=== PATIENT | female | born 1960 | race Caucasian/White ===

== ENCOUNTER → 2019-01-18 08:20 | Outpatient (CLI) | payer OTHER, SELFPAY ==
--- NOTE | 2019-01-18 08:23 | DI.RAD.S_ITS ---
PROCEDURE: XR FOOT LT MIN 3V INDICATIONS: Left foot pain TECHNIQUE: 3 views of the foot were acquired. COMPARISON: None. FINDINGS: Bones: No fractures or dislocations. No suspicious bony lesions. Soft tissues: No tibiotalar joint effusion. Achilles tendon appears normal. IMPRESSION: 3 views of the left foot show a small plantar fascial insertion spur at the posterior calcaneus, and no evidence of trauma or significant degenerative change. Dictated by: Donovan New M.D. on 01/18/2019 at 9:32 Approved by: Donovan New M.D. on 01/18/2019 at 9:33
[2019-01-18 09:14] LABS: Hematocrit 37.8 % (36-46); Hemoglobin 12.7 g/dL (12.0-16.0); Mean Corpuscular HGB Conc 33.5 % (30-36); Mean Corpuscular Hemoglobin 28.7 PG (26-34); Mean Corpuscular Volume 85.8 fL (80-100); Platelet Count 275 X10^3/uL (150-400); Red Blood Cell Count 4.41 X10^6/uL (4.0-5.2); Red Cell Distribution Width 14.2 % (11.6-14.8); White Blood Cell Count 5.1 X10^3/uL (4.5-11.0)
[2019-01-18 09:36] LABS: Alanine Aminotransferase 27 IU/L (9-52); Albumin 4.1 g/dL (3.5-5.0); Albumin Globulin Ratio 1.3 (1.0-2.8); Alkaline Phosphatase 121 U/L (38-126); Aspartate Aminotransferase 30 IU/L (14-36); BUN Creatinine Ratio 21.7 (6-22); Bilirubin Total 0.6 mg/dL (0.2-1.3); Blood Urea Nitrogen 13 mg/dL (7-17); Calcium 9.4 mg/dL (8.4-10.2); Carbon Dioxide 29 mmol/L (22-32); Chloride 105 mmol/L (98-107); Cholesterol 213 mg/dL (140-199); Estimated Glomerular Filt Rate > 60.0 mL/min (>60); Globulin 3.1 g/dL (1.7-4.1); Glucose 114 mg/dL (70-100); HDL Cholesterol 69 mg/dL (40-60); HEMOLYSIS < 15 (0-50); LDL Cholesterol Calculated 131 mg/dL (<100); Potassium 4.4 mmol/L (3.4-5.1); Sodium 139 mmol/L (137-145); Total Protein 7.2 g/dL (6.3-8.2); Triglycerides 63 mg/dL (35-150)
[2019-01-18 10:04] LABS: Thyroid Stimulating Hormone 3.45 uIU/mL (0.47-4.68)
[2019-01-18 11:03] LABS: Neutrophils Absolute Manual 3468 /uL (3000-5900); Total Cells Counted 100
[2019-01-18 11:04] LABS: Anisocytosis 1+
[2019-01-18 11:38] LABS: Appearance Urine UA CLEAR; Bilirubin Urine UA NEGATIVE (NEGATIVE); Color Urine UA YELLOW; Glucose Urine UA NEGATIVE (Negative); Ketones Urine UA NEGATIVE (NEGATIVE); Leukocyte Esterase Urine UA TRACE (NEGATIVE); Nitrite Urine UA NEGATIVE (Negative); Occult Blood Urine UA NEGATIVE (Negative); Protein Urine UA NEGATIVE (Negative); Specific Gravity Urine UA 1.025 (1.000-1.035); Urobilinogen Urine UA 0.2 E.U./dL (0.2)
[2019-01-18 11:42] LABS: RBC Urine None Seen (0-5/HPF)
[2019-01-18 12:30] LABS: Calcium Oxalate Crystals Urine Few; Squamous Epithelial Cell Urine 1-5 /HPF (0-5/HPF); WBC Urine 1-5/HPF (0-5/HPF)
[2019-01-18 12:31] LABS: Bacteria Urine Moderate (10-30); Culture Indicated Urine Specimen Cultured; Mucus Urine 2+ (Negative)
== END ==
PROVIDERS: Visit Provider Family Medicine
DX: M79.672 Pain in left foot (principal); Z13.220 Encounter for screening for lipoid disorders; Z13.29 Encounter for screening for other suspected endocrine disorder; Z51.81 Encounter for therapeutic drug level monitoring
CPT/HCPCS: 36415; 73630; 80053; 80061; 81003; 81015; 84443; 85025; 87086

== ENCOUNTER 2019-06-01 20:58 | Emergency (ER) | payer OTHER, SELFPAY ==
[2019-06-01 21:02] VITALS: BP 129/72; PULSE 92; RESP 18; TEMP 37.2; O2SAT 97
--- NOTE | 2019-06-01 21:15 | DI.RAD.S_ITS ---
PROCEDURE: XR HAND RT MIN 3V INDICATIONS: animal bite eval for FB TECHNIQUE: 3 views of the hand(s) acquired. COMPARISON: None. FINDINGS: Bones: No fractures or dislocations. Carpal bones are normally aligned. No suspicious bony lesions. Soft tissues: No suspicious soft tissue calcifications. IMPRESSION: No acute fracture. No osseous lesion. If clinical suspicion and/or symptoms persist, further assessment with repeat plainfilms, or advanced imaging (e.g., CT, MRI, or bone scan) may be helpful for further assessment. Dictated by: Brady Kyle M.D. on 06/01/2019 at 21:46 Approved by: Brady Kyle M.D. on 06/01/2019 at 21:47
--- NOTE | 2019-06-01 21:15 | ED_ITS ---
HPI - Animal Bite General Chief Complaint: Animal Bite Stated Complaint: cat bite to right hand Time Seen by Provider: 06/01/19 21:15 Source: patient Mode of arrival: Ambulatory Limitations: no limitations History of Present Illness HPI narrative: 58-year-old female here for evaluation of a cat bite to her right hand and a scratch to the left hand. She states that this was a domesticated cat however she is unsure whether not at had any of its shots. She was trying to take out of the kennel when the event happened. The patient's last tetanus shot was at the end of last year. Started noticing swelling in the back of the right hand which brought her into the emergency department. She did clean it with soap and water prior to arrival. Related Data Home Medications Medication Instructions Recorded Confirmed multivitamin [Multiple Vitamins] 1 tab PO QDAY #0 10/09/16 03/12/19 calcium carbonate 500 mg calcium 500 mg PO DAILY 03/12/19 03/12/19 (1,250 mg) capsule Previous Rx's Medication Instructions Recorded amoxicillin-pot clavulanate 1 tab PO BID 7 Days #13 tab 06/01/19 [Augmentin] Allergies Allergy/AdvReac Type Severity Reaction Status Date / Time No Known Allergies Allergy Uncoded 03/12/19 16:48 Review of Systems Constitutional Constitutional: Denies fever(s) Musculoskeletal Comments: Pain to the back of the right hand Integumentary/Breasts Comments: Scratches to the left hand, puncture in the back of the right hand, swelling to the back of the right hand Neurologic Comments: Tingling to the fingers in the right hand Hematologic/Lymphatic Hematologic/Lymphatic: Denies easy bleeding and Denies easy bruising Patient History Medical History Asthma (Chronic) Chicken pox (Resolved) Foot pain (Chronic ~2017) Family History (Updated 02/11/19 @ 20:14 by Jayda Rowe) Father No problems noted. Mother Cancer Hypertension Brother Hypertension Stroke Brother Cancer Grandfather Cancer Grandmother Diabetes mellitus Hypertension Grandfather Cancer Social History Smoking Status: Never smoker alcohol intake: current (3-4 drinks per week) Smoking Status: Never smoker Substance Use Type: does not use Exam Initial Vital Signs Initial Vital Signs: Vital Signs Temperature 99 F 06/01/19 21:02 Pulse Rate 92 H 06/01/19 21:02 Respiratory Rate 18 06/01/19 21:02 Blood Pressure 129/72 06/01/19 21:02 Pulse Oximetry 97 06/01/19 21:02 Const General: cooperative and comfortable Cardio Pulses: radial pulses present on the right and on the left Skin Other: Patient with 2 separate superficial 1-2 cm scratches to the radial aspect of the left thumb. Patient has a puncture wound to the dorsum of the right hand between the index and middle finger. Has another scratch in between the middle and ring fingers. Swelling on the dorsum of the right and Neuro Other: Tingling to light touch to the fingers of the right hand Extrem Other: Full range of motion of the right wrist. MCP joints limited secondary to pain right hand Course Orders Ordered: ED Orders 06/01/19 21:15 XR hand RT min 3V Stat Discontinued Medications Amoxicillin/Clavulanate Potassium (Augmentin 875-125 Mg) 1 tab PO NOW ONE Stop: 06/01/19 21:16 Last Admin: 06/01/19 21:22 Dose: 1 tab Documented by: BRANDON Vital Signs Vital signs: Vital Signs - 8 hr 06/01/19 21:02 Temperature 99 F Pulse Rate 92 H Respiratory Rate 18 Blood Pressure 129/72 Pulse Oximetry 97 [facility] - Animal Bite Imaging Data Extremity x-ray #1: Attestation: I personally reviewed and interpreted this imaging study as follows: My Impression: X-ray of the right hand, no fractures, no foreign bodies, no dislocations [facility] Narrative Medical decision making narrative: Patient is up-to-date on tetanus. There are no foreign bodies or fractures on the x-ray. She was given a dose of Augmentin here in the ER. Will send home with a prescription for this antibiotic. She was given care instructions and return precautions. She expressed understanding and agreement plan. Discharge Plan Departure Patient Disposition: Home Clinical Impression: Cat bite Qualifiers: Encounter type: initial encounter Qualified Code(s): W55.01XA - Bitten by cat, initial encounter Instructions: DI for Cat Bite Activity Restrictions/Additional Instructions: Take the antibiotics as directed. You can ice your hand. Keep it elevated. You can shower like normal in use soap and water like normal. Contact your [facility] provider for a follow-up. Return to the emergency department for any new or worsening symptoms Prescriptions: New amoxicillin-pot clavulanate [Augmentin] 875-125 mg tablet 1 tab PO BID 7 Days Qty: 13 RF: 0 No Action multivitamin [Multiple Vitamins] 1 EACH tablet 1 tab PO QDAY Qty: 0 RF: 0 calcium carbonate 500 mg calcium (1,250 mg) capsule 500 mg PO DAILY RF: 0 Referrals: Katelyn Anton DO [Primary Care Provider] -
[2019-06-01] MEDS: AMOXICILLIN/CLAV 875/125 MG 1 TAB PO (21:22)
[2019-06-01 21:48] VITALS: PULSE 85; RESP 17; O2SAT 96
== END 2019-06-01 21:44 | disposition home or self-care (01) ==
PROVIDERS: Emergency Provider Emergency Medicine; Family Provider Family Medicine; PCP Family Medicine
DX: S61.451A Open bite of right hand, initial encounter (principal); W55.01XA Bitten by cat, initial encounter
CPT/HCPCS: 73130; 99283

== ENCOUNTER 2019-06-03 11:22 | Inpatient (IN) | payer OTHER, SELFPAY ==
[2019-06-03] VITALS (7 sets, daily range): BP systolic 124–146; BP diastolic 65–86; PULSE 61–71; RESP 16–18; TEMP 36.6–37.1; O2SAT 97–100; BMI 36.6
--- NOTE | 2019-06-03 11:49 | ED.UPPEXIN ---
HPI - Extremity Injury (Upper) <SANA Whitten Last Filed: 06/03/19 17:44> General Chief Complaint: Extremity Injury, Upper Stated Complaint: RIGHT HAND CAT BITE 2 DAYS AGO Time Seen by Provider: 06/03/19 11:35 Source: patient Mode of arrival: Ambulatory Limitations: no limitations History of Present Illness HPI narrative: This 58-year-old female returns due to worsening pain and swelling as well as redness in her right, (non dominant) hand since yesterday. She was seen here 2 nights ago following a bite and scratches by a ?semi feral cat that she feeds. She states that the cat became startled prior to this, was not aggressive. She does not think it has had any vaccines. She did have a tetanus shot recently with her PCP. She states that she thought that the swelling was down and movement a little bit better yesterday than the night before, however she states that she awoke at 3:30 a.m. this morning with increased pain, took Tylenol and that seemed to help however she has also noticed more redness extending to her wrist even since this morning, feels like swelling is worse and that keeps her from moving. She does not feel any weakness or numbness. She states that she has had a little nausea since the bite occurred. She denies fever, chills, sweats or any other new symptoms on systems review and otherwise says she feels at baseline. She notes that the wounds seem pretty much closed aside from the scratch between middle and ring fingers Related Data Home Medications Medication Instructions Recorded Confirmed multivitamin [Multiple Vitamins] 1 tab PO QDAY #0 10/09/16 06/03/19 calcium carbonate 500 mg calcium 500 mg PO DAILY 03/12/19 06/03/19 (1,250 mg) capsule Previous Rx's Medication Instructions Recorded amoxicillin-pot clavulanate 1 tab PO BID 7 Days #13 tab 06/01/19 [Augmentin] Allergies Allergy/AdvReac Type Severity Reaction Status Date / Time No Known Drug Allergies Allergy Verified 06/03/19 17:23 Review of Systems <SANA Whitten Last Filed: 06/03/19 17:44> Review of Systems ROS Unobtainable: All systems reviewed & are unremarkable except as noted in HPI and below Patient History <SANA Whitten Filed: 06/03/19 17:44> Medical History Asthma (Chronic) Chicken pox (Resolved) Foot pain (Chronic ~2016) Surgical History Anesthesia (Resolved) Status post breast reduction (Resolved ~1995) Family History (Updated 02/11/19 @ 20:14 by Jayda Rowe) Father No problems noted. Mother Cancer Hypertension Brother Hypertension Stroke Brother Cancer Grandfather Cancer Grandmother Diabetes mellitus Hypertension Grandfather Cancer Social History household members: none Smoking Status: Never smoker alcohol intake: current Smoking Status: Never smoker Substance Use Type: does not use Exam <Selma Plasencia PA-C - Last Filed: 06/03/19 17:44> Narrative Exam Narrative: GENERAL APPEARANCE: Patient sitting comfortably, in no distress. LUNGS: Clear to auscultation bilaterally. HEART: Rate and rhythm regular without murmur, normal S1 and S2, no S3 or S4. NEUROLOGIC: Right upper extremity sensation grossly intact DERMATOLOGIC: There are some small scabbed wounds on the right hand dorsum in the 3/4 right interdigital space, none open or draining. Moderate erythema over the right hand dorsum extending 2-3 cm proximal to the wrist, somewhat warm to touch. There is no circumferential erythema. MUSCULOSKELETAL: Moderate effusion over the right hand dorsum most prominent over the mid metacarpals. Full active range of motion of the wrists without tenderness. She is unable to fully flex all of the fingers at the PIP joints secondary to tenderness. Full range of motion of the thumb. Finger strength is intact in all walsh against resistance. She does have tenderness with extending the 3rd and 4th fingers. Initial Vital Signs Initial Vital Signs: Vital Signs Temperature 98.8 F 06/03/19 11:37 Pulse Rate 71 06/03/19 11:37 Respiratory Rate 18 06/03/19 11:37 Blood Pressure 137/76 06/03/19 11:37 Pulse Oximetry 100 06/03/19 11:37 <Valentin Kennedy DO - Last Filed: 06/03/19 18:46> Initial Vital Signs Initial Vital Signs: Vital Signs Temperature 98.8 F 06/03/19 11:37 Pulse Rate 71 06/03/19 11:37 Respiratory Rate 18 06/03/19 11:37 Blood Pressure 137/76 06/03/19 11:37 Pulse Oximetry 100 06/03/19 11:37 Course <Selma Plasencia PA-C - Last Filed: 06/03/19 17:44> Course Additional Information: Patient was evaluated, concern for tenosynovitis or deep space infection. Reviewed with Dr. Kennedy who agreed further imaging needed. Reviewed findings with on-call orthopedist Dr. Croft, who reviewed CT. Amberg findings at this point nonspecific but admission warranted for observation. Initial doses of Unasyn and vancomycin ordered per her request as well as extremity elevation and NPO after midnight. Orders Ordered: ED Orders 06/03/19 12:04 CT UE RT w con Stat 06/03/19 12:06 Partial Thromboplastin Time Stat Prothrombin Time INR Stat 06/03/19 12:34 Complete Blood Count AUTO DIFF Stat Comprehensive Metabolic Panel Stat Lactate (Lactic Acid) Stat 06/03/19 13:10 Blood Culture Stat Acetaminophen (Tylenol) 650 mg PO Q6HR PRN PRN Reason: Fever/Mild Pain (1-3) Hydrocodone Bitart/Acetaminophen ([place] 5/325) 2 tab PO Q4HR PRN PRN Reason: Pain, Severe (7-10) Hydrocodone Bitart/Acetaminophen ([place] 5/325) 1 tab PO Q4HR PRN PRN Reason: Pain, Moderate (4-6) Al Hydrox/Mg Hydrox/Simethicone (Maalox Plus) 30 ml PO Q6HR PRN PRN Reason: Dyspepsia Calcium Carbonate (Tums) 1,000 mg PO Q4HR PRN PRN Reason: Dyspepsia Diphenhydramine HCl (Benadryl) 25 mg IV Q4HR PRN PRN Reason: Itching Docusate Sodium (Colace) 100 mg PO BID ROBERT Hydromorphone HCl (Dilaudid) 0.5 mg IV Q6HR PRN PRN Reason: Pain, Moderate (4-6) Hydromorphone HCl (Dilaudid) 1 mg IV Q6HR PRN PRN Reason: Pain, Severe (7-10) Vancomycin HCl/Dextrose (Vancomycin) 1,500 mg in 300 mls @ 100 mls/hr IV Q12H [facility] Last Infusion: 06/03/19 16:47 Dose: 200 mls/hr Documented by: Infusion: 06/03/19 14:56 Dose: 0 mls/hr Documented by: Admin: 06/03/19 14:42 Dose: 200 mls/hr Documented by: ALINE Ampicillin Sodium/Sulbactam (Sodium 3 gm/ Sodium Chloride) 100 mls @ 100 mls/hr IV Q6H [facility] Last Admin: 06/03/19 18:22 Dose: 100 mls/hr Documented by: EDGARD Sodium Chloride (Normal Saline 0.9%) 1,000 mls @ 100 mls/hr IV CONT [facility] Last Admin: 06/03/19 18:22 Dose: 100 mls/hr Documented by: EDGARD Ibuprofen (Advil) 600 mg PO Q6HR PRN PRN Reason: Fever/Mild Pain (1-3) Naloxone HCl (Narcan) 0.2 mg IV Q2MIN PRN PRN Reason: Opiate Reversal Ondansetron HCl (Zofran Odt) 4 mg PO Q8HR PRN PRN Reason: Nausea And Vomiting Ondansetron HCl (Zofran) 4 mg IV Q8HR PRN PRN Reason: Nausea And Vomiting Sodium Chloride (Normal Saline 0.9% Flush) 10 ml IV PRN PRN PRN Reason: Flush Last Admin: 06/03/19 17:26 Dose: 10 ml Documented by: EDGARD Sodium Chloride (Normal Saline 0.9% Flush) 10 ml IV BID [facility] Vancomycin HCl (Vancomycin Trough) 1 request MIS 1430 [facility] Stop: 06/05/19 14:31 Discontinued Medications Diphenhydramine HCl (Benadryl) 25 mg IV NOW ONE Stop: 06/03/19 17:21 Last Admin: 06/03/19 17:10 Dose: 25 mg Documented by: EDGARD Sodium Chloride (Normal Saline 0.9%) 1,000 mls @ 1,000 mls/hr IV BOLUS ONE Stop: 06/03/19 13:03 Last Infusion: 06/03/19 14:15 Dose: 0 mls/hr Documented by: Infusion: 06/03/19 13:03 Dose: 1,000 mls/hr [facility]: [facility] Infusion: 06/03/19 12:40 Dose: 0 mls/hr Documented by: Admin: 06/03/19 12:40 Dose: 1,000 mls/hr Documented by: ALINE Ibuprofen (Advil) 800 mg PO NOW ONE Stop: 06/03/19 12:05 Last Admin: 06/03/19 12:40 Dose: 800 mg Documented by: ALINE Vancomycin HCl (Vancomycin Per Pharmacy) 1 request MISC NOW ONE Stop: 06/03/19 13:57 Last Admin: 06/03/19 14:50 Dose: Not Given Documented by: ALINE Vital Signs Vital signs: Vital Signs - 8 hr 06/03/19 11:37 06/03/19 12:00 06/03/19 12:34 Temperature 98.8 F Pulse Rate 71 67 65 Respiratory Rate 18 Blood Pressure 137/76 Blood Pressure [Right Arm] 124/65 Pulse Oximetry 100 97 98 <Valentin Kennedy, - Last Filed: 06/03/19 18:46> Orders Ordered: ED Orders 06/03/19 12:04 CT UE RT w con Stat 06/03/19 12:06 Partial Thromboplastin Time Stat Prothrombin Time INR Stat 06/03/19 12:34 Complete Blood Count AUTO DIFF Stat Comprehensive Metabolic Panel Stat Lactate (Lactic Acid) Stat 06/03/19 13:10 Blood Culture Stat Acetaminophen (Tylenol) 650 mg PO Q6HR PRN PRN Reason: Fever/Mild Pain (1-3) Hydrocodone Bitart/Acetaminophen ([place] 5/325) 2 tab PO Q4HR PRN PRN Reason: Pain, Severe (7-10) Hydrocodone Bitart/Acetaminophen ([place] 5/325) 1 tab PO Q4HR PRN PRN Reason: Pain, Moderate (4-6) Al Hydrox/Mg Hydrox/Simethicone (Maalox Plus) 30 ml PO Q6HR PRN PRN Reason: Dyspepsia Calcium Carbonate (Tums) 1,000 mg PO Q4HR PRN PRN Reason: Dyspepsia Diphenhydramine HCl (Benadryl) 25 mg IV Q4HR PRN PRN Reason: Itching Docusate Sodium (Colace) 100 mg PO BID [facility] Hydromorphone HCl (Dilaudid) 0.5 mg IV Q6HR PRN PRN Reason: Pain, Moderate (4-6) Hydromorphone HCl (Dilaudid) 1 mg IV Q6HR PRN PRN Reason: Pain, Severe (7-10) Vancomycin HCl/Dextrose (Vancomycin) 1,500 mg in 300 mls @ 100 mls/hr IV Q12H [facility] Last Infusion: 06/03/19 16:47 Dose: 200 mls/hr Documented by: Infusion: 06/03/19 14:56 Dose: 0 mls/hr Documented by: Admin: 06/03/19 14:42 Dose: 200 mls/hr Documented by: [facility] Ampicillin Sodium/Sulbactam (Sodium 3 gm/ Sodium Chloride) 100 mls @ 100 mls/hr IV Q6H [facility] Last Admin: 06/03/19 18:22 Dose: 100 mls/hr Documented by: EDGARD Sodium Chloride (Normal Saline 0.9%) 1,000 mls @ 100 mls/hr IV CONT [facility] Last Admin: 06/03/19 18:22 Dose: 100 mls/hr Documented by: EDGARD Ibuprofen (Advil) 600 mg PO Q6HR PRN PRN Reason: Fever/Mild Pain (1-3) Naloxone HCl (Narcan) 0.2 mg IV Q2MIN PRN PRN Reason: Opiate Reversal Ondansetron HCl (Zofran Odt) 4 mg PO Q8HR PRN PRN Reason: Nausea And Vomiting Ondansetron HCl (Zofran) 4 mg IV Q8HR PRN PRN Reason: Nausea And Vomiting Sodium Chloride (Normal Saline 0.9% Flush) 10 ml IV PRN PRN PRN Reason: Flush Last Admin: 06/03/19 17:26 Dose: 10 ml Documented by: EDGARD Sodium Chloride (Normal Saline 0.9% Flush) 10 ml IV BID [facility] Vancomycin HCl (Vancomycin Trough) 1 request MISC 1430 [facility] Stop: 06/05/19 14:31 Discontinued Medications Diphenhydramine HCl (Benadryl) 25 mg IV NOW ONE Stop: 06/03/19 17:21 Last Admin: 06/03/19 17:10 Dose: 25 mg Documented by: EDGARD Sodium Chloride (Normal Saline 0.9%) 1,000 mls @ 1,000 mls/hr IV BOLUS ONE Stop: 06/03/19 13:03 Last Infusion: 06/03/19 14:15 Dose: 0 mls/hr Documented by: [facility] Infusion: 06/03/19 13:03 Dose: 1,000 mls/hr Documented by: [facility] Infusion: 06/03/19 12:40 Dose: 0 mls/hr Documented by: [facility] Admin: 06/03/19 12:40 Dose: 1,000 mls/hr Documented by: [facility] Ibuprofen (Advil) 800 mg PO NOW ONE Stop: 06/03/19 12:05 Last Admin: 06/03/19 12:40 Dose: 800 mg Documented by: [facility] Vancomycin HCl (Vancomycin Per Pharmacy) 1 request MISC NOW ONE Stop: 06/03/19 13:57 Last Admin: 06/03/19 14:50 Dose: Not Given Documented by: [facility] Vital Signs Vital signs: Vital Signs - 8 hr 06/03/19 11:37 06/03/19 12:00 06/03/19 12:34 Temperature 98.8 F Pulse Rate 71 67 65 Respiratory Rate 18 Blood Pressure 137/76 Blood Pressure [Right Arm] 124/65 Pulse Oximetry 100 97 98 MDM - Extremity Injury (Upper) <Selma Plasencia PA-C - Last Filed: 06/03/19 17:44> Lab Data Attestation: I reviewed the patient's lab results. Result diagrams: 06/03/19 17:25 06/03/19 17:25 Labs: Lab Results 06/03/19 06/03/19 06/03/19 Range/Units 12:06 12:34 12:34 WBC 7.6 (4.5-11.0) X10^3/uL RBC 4.58 (4.0-5.2) X10^6/uL Hgb 13.2 (12.0-16.0) g/dL Hct 38.8 (36-46) % MCV 84.7 (80-100) fL MCH 28.9 (26-34) PG MCHC 34.1 (30-36) % RDW 13.9 (11.6-14.8) % Plt Count 319 (150-400) X10^3/uL Neut % (Auto) 70.9 (50-75) % Lymph % (Auto) 18.4 L (25-40) % [place] % (Auto) 9.4 (3-14) % Eos % (Auto) 0.7 L (2-4) % Baso % (Auto) 0.6 (0-2) % Neut # (Auto) 5400 (2017-6370) /uL Lymph # (Auto) 1400 (3431-8387) /uL [place] # (Auto) 700 (0-900) /uL Eos # (Auto) 100 (0-450) /uL Baso # (Auto) 0 (0-100) /uL PT 11.9 (10.1-12.7) SECONDS INR 1.0 (0.9-1.3) APTT 36 (26.4-36.2) SECONDS Sodium 139 (137-145) mmol/L Potassium 4.0 (3.4-5.1) mmol/L Chloride 102 (98-107) mmol/L Carbon Dioxide 29 (22-32) mmol/L BUN 12 (7-17) mg/dL Creatinine 0.60 (0.52-1.04) mg/dL Estimated GFR > 60.0 (>60) mL/min BUN/Creatinine Ratio 20.0 (6-22) Glucose 103 H (70-100) mg/dL Lactate (0.7-2.1) mmol/L Calcium 9.8 (8.4-10.2) mg/dL Total Bilirubin 0.7 (0.2-1.3) mg/dL AST 75 H (14-36) IU/L ALT 73 H (<35) IU/L Alkaline Phosphatase 167 H (38-126) U/L Total Protein 8.0 (6.3-8.2) g/dL Albumin 4.8 (3.5-5.0) g/dL Globulin 3.2 (1.7-4.1) g/dL Albumin/Globulin Ratio 1.5 (1.0-2.8) 06/03/19 Range/Units 12:34 WBC (4.5-11.0) X10^3/uL RBC (4.0-5.2) X10^6/uL Hgb (12.0-16.0) g/dL Hct (36-46) % MCV (80-100) fL MCH (26-34) PG MCHC (30-36) % RDW (11.6-14.8) % Plt Count (150-400) X10^3/uL Neut % (Auto) (50-75) % Lymph % (Auto) (25-40) % [place] % (Auto) (3-14) % Eos % (Auto) (2-4) % Baso % (Auto) (0-2) % Neut # (Auto) (4890-8645) /uL Lymph # (Auto) (7768-8939) /uL [place] # (Auto) (0-900) /uL Eos # (Auto) (0-450) /uL Baso # (Auto) (0-100) /uL PT (10.1-12.7) SECONDS INR (0.9-1.3) APTT (26.4-36.2) SECONDS Sodium (137-145) mmol/L Potassium (3.4-5.1) mmol/L Chloride (98-107) mmol/L Carbon Dioxide (22-32) mmol/L BUN (7-17) mg/dL Creatinine (0.52-1.04) mg/dL Estimated GFR (>60) mL/min BUN/Creatinine Ratio (6-22) Glucose (70-100) mg/dL Lactate 0.8 (0.7-2.1) mmol/L Calcium (8.4-10.2) mg/dL Total Bilirubin (0.2-1.3) mg/dL AST (14-36) IU/L ALT (<35) IU/L Alkaline Phosphatase (38-126) U/L Total Protein (6.3-8.2) g/dL Albumin (3.5-5.0) g/dL Globulin (1.7-4.1) g/dL Albumin/Globulin Ratio (1.0-2.8) Imaging Data UE CT: Radiologist's Impression: [address] [address] [address] Scan Report Signed Patient: Linda Bergeron LMR#: [id number] : 2Acct:[id number] Age/Sex: 58 / FDate of Service: 06/03/19 Loc: ED Accession Number: [id number] Procedure: CT UE RT w con Ordering Provider: Selma Plasencia P.A-C PROCEDURE: CT UE RT W CON INDICATIONS: cat bite 4 days ago, worsening edema, pain TECHNIQUE: After the administration of intravenous contrast, 3 mm axial sections acquired of the distal right forearm and hand, with coronal and sagittal reformats. COMPARISON: [facility], CR, XR HAND RT MIN 3V, 06/01/2019, 21:18. FINDINGS: Image quality: Diagnostic. Bones: There is no acute fracture, dislocation, or suspicious osseous lesion. No osseous erosions are identified. There may be mild degenerative changes involving the bones of the wrist. Bony alignment is within normal limits. Soft tissues: Extensive subcutaneous edema about the wrist is identified. The degree of edema is slightly more prominent along the dorsal aspect of the hand. No definite peripherally enhancing loculated fluid collection is evident. There appears to be early phlegmonous soft tissue changes on the dorsal aspects of the 3rd and 4th metacarpals. There is also prominent soft tissue swelling about the 2nd and 3rd metacarpophalangeal joints. A prominent joint effusion extending along the dorsal aspect of the joint space is evident at the 3rd metacarpophalangeal joint. Phlegmonous soft tissue changes along the more superficial aspect of the subcutaneous tissues within this region is present. There likely is a peritendinous edema involving the sheaths of the 4th extensor compartment. Please not that the ligaments, tendons, and cartilaginous structures of the hand and wrist are not adequately evaluated on CT. No significant atrophy is appreciated involving the intrinsic muscles of the hand and forearm. IMPRESSION: 1. Prominent subcutaneous edema of the dorsal aspect of the hand is centered about the 2nd through 4th metacarpals is suggestive of cellulitis. 2. Phlegmonous soft tissue changes along the dorsal aspect of the 3rd and 4th metacarpals without a definitive abscess appreciated. 3. Prominent joint effusion of the 3rd metacarpophalangeal joint is suspicious for possible septic arthritis. MRI with intravenous contrast is recommended for confirmation and to evaluate for possible osteomyelitis. 4. Soft tissue swelling about the 2nd metacarpophalangeal joint also raises suspicion for possible synovitis. 5. Probable tenosynovitis involving the extensor tendons of the 4th compartment. Dictated by: Luis Morgan M.D. on 06/03/2019 at 12:14 Approved by: Luis Morgan M.D. on 06/03/2019 at 12:22 <Valentin Kennedy DO - Last Filed: 06/03/19 18:46> Lab Data Labs: Lab Results 06/03/19 06/03/19 06/03/19 Range/Units 12:06 12:34 12:34 WBC 7.6 (4.5-11.0) X10^3/uL RBC 4.58 (4.0-5.2) X10^6/uL Hgb 13.2 (12.0-16.0) g/dL Hct 38.8 (36-46) % MCV 84.7 (80-100) fL MCH 28.9 (26-34) PG MCHC 34.1 (30-36) % RDW 13.9 (11.6-14.8) % Plt Count 319 (150-400) X10^3/uL Neut % (Auto) 70.9 (50-75) % Lymph % (Auto) 18.4 L (25-40) % [place] % (Auto) 9.4 (3-14) % Eos % (Auto) 0.7 L (2-4) % Baso % (Auto) 0.6 (0-2) % Neut # (Auto) 5400 (2545-8534) /uL Lymph # (Auto) 1400 (9914-0506) /uL [place] # (Auto) 700 (0-900) /uL Eos # (Auto) 100 (0-450) /uL Baso # (Auto) 0 (0-100) /uL PT 11.9 (10.1-12.7) SECONDS INR 1.0 (0.9-1.3) APTT 36 (26.4-36.2) SECONDS Sodium 139 (137-145) mmol/L Potassium 4.0 (3.4-5.1) mmol/L Chloride 102 (98-107) mmol/L Carbon Dioxide 29 (22-32) mmol/L BUN 12 (7-17) mg/dL Creatinine 0.60 (0.52-1.04) mg/dL Estimated GFR > 60.0 (>60) mL/min BUN/Creatinine Ratio 20.0 (6-22) Glucose 103 H (70-100) mg/dL Lactate (0.7-2.1) mmol/L Calcium 9.8 (8.4-10.2) mg/dL Total Bilirubin 0.7 (0.2-1.3) mg/dL AST 75 H (14-36) IU/L ALT 73 H (<35) IU/L Alkaline Phosphatase 167 H (38-126) U/L Total Protein 8.0 (6.3-8.2) g/dL Albumin 4.8 (3.5-5.0) g/dL Globulin 3.2 (1.7-4.1) g/dL Albumin/Globulin Ratio 1.5 (1.0-2.8) 06/03/19 Range/Units 12:34 WBC (4.5-11.0) X10^3/uL RBC (4.0-5.2) X10^6/uL Hgb (12.0-16.0) g/dL Hct (36-46) % MCV (80-100) fL MCH (26-34) PG MCHC (30-36) % RDW (11.6-14.8) % Plt Count (150-400) X10^3/uL Neut % (Auto) (50-75) % Lymph % (Auto) (25-40) % [place] % (Auto) (3-14) % Eos % (Auto) (2-4) % Baso % (Auto) (0-2) % Neut # (Auto) (2363-4983) /uL Lymph # (Auto) (0697-2609) /uL [place] # (Auto) (0-900) /uL Eos # (Auto) (0-450) /uL Baso # (Auto) (0-100) /uL PT (10.1-12.7) SECONDS INR (0.9-1.3) APTT (26.4-36.2) SECONDS Sodium (137-145) mmol/L Potassium (3.4-5.1) mmol/L Chloride (98-107) mmol/L Carbon Dioxide (22-32) mmol/L BUN (7-17) mg/dL Creatinine (0.52-1.04) mg/dL Estimated GFR (>60) mL/min BUN/Creatinine Ratio (6-22) Glucose (70-100) mg/dL Lactate 0.8 (0.7-2.1) mmol/L Calcium (8.4-10.2) mg/dL Total Bilirubin (0.2-1.3) mg/dL AST (14-36) IU/L ALT (<35) IU/L Alkaline Phosphatase (38-126) U/L Total Protein (6.3-8.2) g/dL Albumin (3.5-5.0) g/dL Globulin (1.7-4.1) g/dL Albumin/Globulin Ratio (1.0-2.8) Discharge Plan Departure Patient Disposition: Admitted as Observation Clinical Impression: Cellulitis of dorsum of hand Cat bite Qualifiers: Encounter type: initial encounter Qualified Code(s): W55.01XA - Bitten by cat, initial encounter Discharge Date/Time: 06/03/19 14:59 Admit Date/Time: 06/03/19 13:57 Admit Provider: Sally Astudillo
--- NOTE | 2019-06-03 12:04 | DI.CT.S_ITS ---
PROCEDURE: CT UE RT W CON INDICATIONS: cat bite 4 days ago, worsening edema, pain TECHNIQUE: After the administration of intravenous contrast, 3 mm axial sections acquired of the distal right forearm and hand, with coronal and sagittal reformats. COMPARISON: [facility], CR, XR HAND RT MIN 3V, 06/01/2019, 21:18. FINDINGS: Image quality: Diagnostic. Bones: There is no acute fracture, dislocation, or suspicious osseous lesion. No osseous erosions are identified. There may be mild degenerative changes involving the bones of the wrist. Bony alignment is within normal limits. Soft tissues: Extensive subcutaneous edema about the wrist is identified. The degree of edema is slightly more prominent along the dorsal aspect of the hand. No definite peripherally enhancing loculated fluid collection is evident. There appears to be early phlegmonous soft tissue changes on the dorsal aspects of the 3rd and 4th metacarpals. There is also prominent soft tissue swelling about the 2nd and 3rd metacarpophalangeal joints. A prominent joint effusion extending along the dorsal aspect of the joint space is evident at the 3rd metacarpophalangeal joint. Phlegmonous soft tissue changes along the more superficial aspect of the subcutaneous tissues within this region is present. There likely is a peritendinous edema involving the sheaths of the 4th extensor compartment. Please not that the ligaments, tendons, and cartilaginous structures of the hand and wrist are not adequately evaluated on CT. No significant atrophy is appreciated involving the intrinsic muscles of the hand and forearm. IMPRESSION: 1. Prominent subcutaneous edema of the dorsal aspect of the hand is centered about the 2nd through 4th metacarpals is suggestive of cellulitis. 2. Phlegmonous soft tissue changes along the dorsal aspect of the 3rd and 4th metacarpals without a definitive abscess appreciated. 3. Prominent joint effusion of the 3rd metacarpophalangeal joint is suspicious for possible septic arthritis. MRI with intravenous contrast is recommended for confirmation and to evaluate for possible osteomyelitis. 4. Soft tissue swelling about the 2nd metacarpophalangeal joint also raises suspicion for possible synovitis. 5. Probable tenosynovitis involving the extensor tendons of the 4th compartment. Dictated by: Luis Morgan M.D. on 06/03/2019 at 12:14 Approved by: Luis Morgan M.D. on 06/03/2019 at 12:22
[2019-06-03] MEDS: IBUPROFEN 400 MG TABLET 800 MG PO (12:40)
[2019-06-03] MEDS: SODIUM CHLORIDE 0.9% 1,000 ML 1000 ML IV (12:40)
[2019-06-03 12:44] LABS: Add Manual Diff / Slide Review NO; Basophils Absolute Auto 0 /uL (0-100); Basophils Percent Auto 0.6 % (0-2); Eosinophils Absolute Auto 100 /uL (0-450); Eosinophils Percent Auto 0.7 % (2-4); Hematocrit 38.8 % (36-46); Hemoglobin 13.2 g/dL (12.0-16.0); Lymphocytes Absolute Auto 1400 /uL (1100-4500); Lymphocytes Percent Auto 18.4 % (25-40); Mean Corpuscular HGB Conc 34.1 % (30-36); Mean Corpuscular Hemoglobin 28.9 PG (26-34); Mean Corpuscular Volume 84.7 fL (80-100); Monocytes Absolute Auto 700 /uL (0-900); Monocytes Percent Auto 9.4 % (3-14); Neutrophils Absolute Auto 5400 /uL (1500-7000); Neutrophils Percent Auto 70.9 % (50-75); Platelet Count 319 X10^3/uL (150-400); Red Blood Cell Count 4.58 X10^6/uL (4.0-5.2); Red Cell Distribution Width 13.9 % (11.6-14.8); White Blood Cell Count 7.6 X10^3/uL (4.5-11.0)
[2019-06-03 12:55] LABS: Prothrombin Time 11.9 SECONDS (10.1-12.7)
[2019-06-03 12:55] LABS: Lactate (Lactic Acid) 0.8 mmol/L (0.7-2.1)
[2019-06-03 12:56] LABS: Alanine Aminotransferase 73 IU/L (<35); Albumin 4.8 g/dL (3.5-5.0); Albumin Globulin Ratio 1.5 (1.0-2.8); Alkaline Phosphatase 167 U/L (38-126); Aspartate Aminotransferase 75 IU/L (14-36); Bilirubin Total 0.7 mg/dL (0.2-1.3); Blood Urea Nitrogen 12 mg/dL (7-17); Calcium 9.8 mg/dL (8.4-10.2); Carbon Dioxide 29 mmol/L (22-32); Chloride 102 mmol/L (98-107); Estimated Glomerular Filt Rate > 60.0 mL/min (>60); Globulin 3.2 g/dL (1.7-4.1); Glucose 103 mg/dL (70-100); HEMOLYSIS < 15 (0-50); Sodium 139 mmol/L (137-145)
[2019-06-03 12:57] LABS: PTT Partial Thromboplastin Tim 36 SECONDS (26.4-36.2)
[2019-06-03] MEDS: VANCOMYCIN 1,500 MG/300 ML FROZ.PIGGY 200 MG IV (14:42)
--- NOTE | 2019-06-03 14:55 | PC.NURSE ---
report called to Vanessa, inpatient RN - explained to her what ortho wants for elevating patient's right arm, i.e. volar splint and then hung from an IV pole to get hand above head, I placed the splint and provided splinting sleeve for securing to IV pole when patient gets to the floor
--- NOTE | 2019-06-03 16:21 | PC.NURSE ---
Addendum entered by Yaz Ramos R.N. 06/03/19 22:41: Ibuprofen to manage pain 1/10 to right hand. Pt keeps right wrist brace in place except for toileting. Suspends RUE on mechanical lift trapeze lowered to just above pt's bed. Addendum entered by Yaz Ramos R.N. 06/03/19 18:17: Pt reports itching has resolved. No further complaints. Addendum entered by Yaz Ramos R.N. 06/03/19 17:20: Pt's iv vancomycin has completed. Pt reports scalp is itching and pt is actively scratching. Pt reports feels as though has rash to face and is rubbing face. 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 Dr. Astudillo was contacted by telephone and informed. 25 mg iv benadryl administered stat and pharmacy informed. Original Note: Pt with right arm supported with wrist brace and cotton stockinette with mechanical lift. Pt reports pain nonexistent and arm feels best when supported in this manner. 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 Right digits equally warm and pink. Noted outlined erythema to right hand dorsal aspect just above index finger knuckle. Two bites siddiqi noted. Scratch siddiqi x 2 to left thumb. Pt reports all from cat.
[2019-06-03] MEDS: diphenhydrAMINE 50 MG/ML VIAL 25 MG IV (17:10)
[2019-06-03] MEDS: SODIUM CHLORIDE 0.9% FLUSH 10 ML IV (17:26)
[2019-06-03 17:35] LABS: Add Manual Diff / Slide Review NO; Basophils Absolute Auto 100 /uL (0-100); Basophils Percent Auto 1.1 % (0-2); Eosinophils Absolute Auto 100 /uL (0-450); Eosinophils Percent Auto 1.3 % (2-4); Hematocrit 36.9 % (36-46); Hemoglobin 12.4 g/dL (12.0-16.0); Lymphocytes Absolute Auto 1800 /uL (1100-4500); Lymphocytes Percent Auto 23.4 % (25-40); Mean Corpuscular HGB Conc 33.5 % (30-36); Mean Corpuscular Hemoglobin 28.7 PG (26-34); Mean Corpuscular Volume 85.6 fL (80-100); Monocytes Absolute Auto 800 /uL (0-900); Monocytes Percent Auto 9.8 % (3-14); Neutrophils Absolute Auto 5100 /uL (1500-7000); Neutrophils Percent Auto 64.4 % (50-75); Platelet Count 281 X10^3/uL (150-400); Red Blood Cell Count 4.31 X10^6/uL (4.0-5.2); White Blood Cell Count 7.9 X10^3/uL (4.5-11.0)
[2019-06-03 17:58] LABS: Alanine Aminotransferase 62 IU/L (<35); Albumin 4.2 g/dL (3.5-5.0); Albumin Globulin Ratio 1.4 (1.0-2.8); Alkaline Phosphatase 144 U/L (38-126); Aspartate Aminotransferase 58 IU/L (14-36); BUN Creatinine Ratio 18.3 (6-22); Bilirubin Total 0.6 mg/dL (0.2-1.3); Blood Urea Nitrogen 11 mg/dL (7-17); Calcium 9.2 mg/dL (8.4-10.2); Carbon Dioxide 25 mmol/L (22-32); Chloride 105 mmol/L (98-107); Estimated Glomerular Filt Rate > 60.0 mL/min (>60); Globulin 2.9 g/dL (1.7-4.1); Glucose 111 mg/dL (70-100); HEMOLYSIS < 15 (0-50); Potassium 3.8 mmol/L (3.4-5.1); Sodium 138 mmol/L (137-145); Total Protein 7.1 g/dL (6.3-8.2)
[2019-06-03 17:59] LABS: C-Reactive Protein Quant 2.6 mg/dL (<1.0)
[2019-06-03 18:06] LABS: Erythrocyte Sedimentation Rate 30 MM/HR (0-20)
[2019-06-03] MEDS: SODIUM CHLORIDE 0.9% 1,000 ML 100 ML IV (18:22)
[2019-06-03] MEDS: AMPICILLIN/SULBACTAM 3 GM 3 GM in SODIUM CHLORIDE 0.9% 100 ML IV ×2 (18:22→23:37)
[2019-06-03] MEDS: IBUPROFEN 600 MG TABLET PO (20:02)
--- NOTE | 2019-06-03 23:49 | PC.NURSE ---
Addendum entered by Ann Alejandra R.N. 06/04/19 06:30: Slept most of shift. Up to bathroom this morning with SBA. Vancomycin infused at 100cc/h and patient denies any itching from antibiotic. Denies pain. Original Note: Patient is alert and oriented. Breath sounds CTA with RA sat of 98%; on continuous oximetry. HRR. Denies nausea. BT present and abdomen is soft. Denies dysuria, frequency or urgency with urination. Able to move self in bed and SBA to bathroom for safety. Right UE is splinted and elevated (attached to overhead lift bar). Slight erythema to right posterior hand with puncture siddiiq below 3rd finger and between 3rd/4th fingers; redness is within margins and edema is decreased per patient but still puffy fingers, hand and wrist. Denies pain and CMS is intact. Abrasions from cat scratch also noted on left lower thumb. Wearing bilateral SCD's. Fall risk score is moderate and bed alarm is activated.
[2019-06-04] MEDS: VANCOMYCIN 1,500 MG/300 ML FROZ.PIGGY 100 MG IV (02:57)
[2019-06-04 05:39] VITALS: BP 136/78; PULSE 64; RESP 20; TEMP 36.8; O2SAT 99
[2019-06-04] MEDS: AMPICILLIN/SULBACTAM 3 GM 3 GM in SODIUM CHLORIDE 0.9% 100 ML IV (06:13)
--- NOTE | 2019-06-04 07:02 | PM.HP.1 ---
History of Present Illness History of Present Illness Date Patient Seen: 06/04/19 Time Patient Seen: 07:03 Chief complaint: RIGHT HAND CAT BITE 2 DAYS AGO Narrative: Patient is a left-hand dominant female who presents with a right dorsal hand cat bite sustained on 06/01/2019. She was previously seen in the ER and sent out Augmentin. She returned 2 days later with increasing pain and cellulitis. Yesterday she endorses redness and swelling above her wrist and pain. She was placed on admission for observation IV antibiotics overnight. This morning she reports much improved redness and pain and improved range of motion in her digits. She states the Cat is her own. She got previous tetanus recently. She has been on vancomycin and Unasyn. She denies having a clinched fist with the bite but states the cat bit her around her hand. She has a puncture siddiqi dorsal and proximal to the 3rd metacarpal and a smaller puncture wound in the middle ring webspace. Endorses swelling and tenderness improved from previous. Denies fevers or chills. Patient History Medical History Asthma (Chronic) Chicken pox (Resolved) Foot pain (Chronic ~2016) Surgical History Anesthesia (Resolved) Status post breast reduction (Resolved ~1995) Family & Social History Family History Father No problems noted. Mother Cancer Hypertension Brother Hypertension Stroke Brother Cancer Grandfather Cancer Grandmother Diabetes mellitus Hypertension Grandfather Cancer Social History: household members none Prior Living Arrangements House Safety & Behavioral: Feels Safe in Current Yes Environment Been Physically Hurt or No Threatened By a Person Suicidal Ideation Description None Suicide Plan Description No Plan Tobacco & Substance use: Smoking Status Never smoker alcohol intake current alcohol intake frequency holiday/special occasion Substance Use Type does not use Meds Home Medications and Allergies Home Medications Medication Instructions Recorded Confirmed Type multivitamin [Multiple Vitamins] 1 tab PO QDAY #0 10/09/16 06/03/19 History calcium carbonate 500 mg calcium 500 mg PO DAILY 03/12/19 06/03/19 History (1,250 mg) capsule amoxicillin-pot clavulanate 1 tab PO BID 7 Days #13 tab 06/01/19 06/03/19 Rx [Augmentin] Allergies Allergy/AdvReac Type Severity Reaction Status Date / Time No Known Drug Allergies Allergy Verified 06/03/19 17:23 Review of Systems Review of Systems ROS Unobtainable: All systems reviewed & are unremarkable except as noted in HPI and below Exam Vital Signs (past 8 hours): - 06/03/19 23:50 06/04/19 05:39 Temperature 98.0 F 98.2 F Pulse Rate 63 64 Respiratory Rate 16 20 Blood Pressure 136/74 136/78 Pulse Oximetry 100 99 Oxygen Delivery Method Room Air Oxygen Flow Rate 0 Narrative Exam Narrative: Alert oriented female no acute distress. Afebrile. Vital signs stable. HEENT exam normocephalic atraumatic Respiratory exam unlabored on room air. CV exam regular rate and rhythm Upper extremities full range of motion shoulders and wrists. Right upper extremity demonstrates mild swelling over the 3rd metacarpal with small scabbed puncture wound and smaller puncture wound in the middle ring web space. Patient tolerates passive and active MCP range of motion. There is a marked out area over the dorsum of the wrist from the previous cellulitis margins this is improved and there is just a faint amount of redness and swelling proximal to the 3rd metacarpal. There is no redness over the rest of the dorsum of the hand or the wrist which is improved from reports per the patient and ER. Patient has no passive range of motion pain or flexion are or fusiform swelling no signs of tenosynovitis. No fluctuance sensation intact to light touch median radial ulnar nerves. Objective Labs Result Diagrams: 06/03/19 17:25 06/03/19 17:25 Labs: Laboratory Results - last 24 hr 06/03/19 06/03/19 06/03/19 12:06 12:34 12:34 WBC 7.6 RBC 4.58 Hgb 13.2 Hct 38.8 MCV 84.7 MCH 28.9 MCHC 34.1 RDW 13.9 Plt Count 319 Neut % (Auto) 70.9 Lymph % (Auto) 18.4 L [place] % (Auto) 9.4 Eos % (Auto) 0.7 L Baso % (Auto) 0.6 Neut # (Auto) 5400 Lymph # (Auto) 1400 [place] # (Auto) 700 Eos # (Auto) 100 Baso # (Auto) 0 ESR PT 11.9 INR 1.0 APTT 36 Sodium 139 Potassium 4.0 Chloride 102 Carbon Dioxide 29 BUN 12 Creatinine 0.60 Estimated GFR > 60.0 BUN/Creatinine Ratio 20.0 Glucose 103 H Lactate Calcium 9.8 Total Bilirubin 0.7 AST 75 H ALT 73 H Alkaline Phosphatase 167 H C-Reactive Protein Total Protein 8.0 Albumin 4.8 Globulin 3.2 Albumin/Globulin Ratio 1.5 06/03/19 06/03/19 06/03/19 12:34 17:25 17:25 WBC RBC Hgb Hct MCV MCH MCHC RDW Plt Count Neut % (Auto) Lymph % (Auto) [place] % (Auto) Eos % (Auto) Baso % (Auto) Neut # (Auto) Lymph # (Auto) [place] # (Auto) Eos # (Auto) Baso # (Auto) ESR 30 H PT INR APTT Sodium Potassium Chloride Carbon Dioxide BUN Creatinine Estimated GFR BUN/Creatinine Ratio Glucose Lactate 0.8 Calcium Total Bilirubin AST ALT Alkaline Phosphatase C-Reactive Protein 2.6 H Total Protein Albumin Globulin Albumin/Globulin Ratio 06/03/19 06/03/19 17:25 17:25 WBC 7.9 RBC 4.31 Hgb 12.4 Hct 36.9 MCV 85.6 MCH 28.7 MCHC 33.5 RDW 14.0 Plt Count 281 Neut % (Auto) 64.4 Lymph % (Auto) 23.4 L [place] % (Auto) 9.8 Eos % (Auto) 1.3 L Baso % (Auto) 1.1 Neut # (Auto) 5100 Lymph # (Auto) 1800 [place] # (Auto) 800 Eos # (Auto) 100 Baso # (Auto) 100 ESR PT INR APTT Sodium 138 Potassium 3.8 Chloride 105 Carbon Dioxide 25 BUN 11 Creatinine 0.60 Estimated GFR > 60.0 BUN/Creatinine Ratio 18.3 Glucose 111 H Lactate Calcium 9.2 Total Bilirubin 0.6 AST 58 H ALT 62 H Alkaline Phosphatase 144 H C-Reactive Protein Total Protein 7.1 Albumin 4.2 Globulin 2.9 Albumin/Globulin Ratio 1.4 Assessment & Plan Assessment and plan (1) Cat bite: Qualifiers: Encounter type: initial encounter Qualified Code(s): W55.01XA - Bitten by cat, initial encounter Current visit: Yes Status: Acute (2) Cellulitis of dorsum of hand: Current visit: Yes Status: Acute Assessment & Plan narrative: 1. Cat bite right hand. Patient has a right hand cat bite and hand dorsal cellulitis. Her clinical appearance has significantly improved overnight on IV antibiotics with elevation above the heart level. She has puncture wounds that are suspicious for 3rd metacarpal phalangeal joint involvement-which would be more likely with a clenched fist injury, however the patient has a markedly improved exam and tolerates active and passive range of motion well. Given her significant improvement will convert to oral antibiotics and monitor. I discussed with the patient if she becomes worse has increased pain or limited range of motion of this joint then she will need to return for I& D. Patient understands and agrees with the plan. She will be sent out on Augmentin as well as a Bactrim. She will follow up next week for examination as long as she is improving. Follow-up sooner for any worsening. Time Spent With Patient Time with patient: less than 15 minutes Quality VTE Deep Vein Thrombosis/Pulmonary Embolism Present on Admission: No
[2019-06-04] MEDS: SODIUM CHLORIDE 0.9% FLUSH 10 ML IV (07:23)
[2019-06-04] MEDS: TRIMETH/SULFA 160/800 (DS) TABLET 1 TAB PO (08:35)
--- NOTE | 2019-06-04 10:40 | PC.NURSE ---
Day Shift- Pt A&OX4, able to make needs known this shift using call light. Left distal thumb scratchesX2, no discharge, no redness. Right inner middle finger abrasion and dorsal hand cat bite scabbed. Redness approx 1 inch around, well within previous marked lines. Edematous, pt states less than yesterday. edema from fingers, more so to middle finder to hand/palm and wrist to lower forearm. 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 Elevating on pillows, splint on/off per pt comfort, pt has splint on then will elevated right arm using ceiling lift. Pt aware to elevate at home. Pt states is ready for home. Discharge summary packet reviewed with pt, no voiced concerns. Pres[facility] X[facility] [place] Pt will make F/U appointment with her PCP. Pt drove herself to Hospital. Pt left unit in no distress with all belongings at 1038 via wheelchair and FLOOR MANAGER escort.
--- NOTE | 2019-06-04 10:51 | CM.DPNOTE ---
DC Note: According to chart review, pt admitted 06.03.19 after sustaining a cat bite 2 days ago w/increasing signs of infection at home. Pt admitted obs by Dr Astudillo for IV abx. PCP: Katelyn Anton Payer: Lobo Per Dr Astudillo's prog note today, infection has improved w/overnight abx and pt can DC home on oral abx. Pt gone from room when this GUN STOCK MAKER arrived for assessment. No needs identified by staff before her DC home. ANITHA Fernando
== END 2019-06-04 10:38 | disposition home or self-care (01) | DRG 603 ==
LOC: ED 11:35 → AC 14:22
PROVIDERS: Admitting Provider Orthopaedic Surgery Foot and Ankle Surgery; Emergency Provider Internal Medicine; Family Provider Family Medicine; PCP Family Medicine; Visit Provider Orthopaedic Surgery Foot and Ankle Surgery
DX: L03.113 Cellulitis of right upper limb (principal); S61.451A Open bite of right hand, initial encounter; W55.01XA Bitten by cat, initial encounter
CPT/HCPCS: 36415; 73201; 80053; 83605; 85025; 85610; 85651; 85730; 86140; 87040; 96361; 96374; 99284; G0378; J0295; J1200

== ENCOUNTER → 2020-01-19 12:04 | Outpatient (CLI) | payer OTHER, SELFPAY ==
[2019-06-03 15:30] VITALS: BMI 36.6
--- NOTE | 2020-01-19 12:05 | DI.RAD.S_ITS ---
PROCEDURE: XR KNEE LT 3V INDICATIONS: left knee pain TECHNIQUE: 3 views of the knee were acquired. COMPARISON: None. FINDINGS: Bones: No fractures or dislocations. There are small intercondylar osteophytes. No suspicious bony lesions. Soft tissues: No joint effusion. No suspicious soft tissue calcifications. IMPRESSION: Mild degenerative change. Dictated by: Jennifer Pollard M.D. on 01/19/2020 at 13:33 Approved by: Jennifer Pollard M.D. on 01/19/2020 at 13:34
== END ==
PROVIDERS: Family Provider Family Medicine; PCP Nurse Practitioner Family; Referring Provider Nurse Practitioner Family; Visit Provider Nurse Practitioner Family
DX: M25.562 Pain in left knee (principal)
CPT/HCPCS: 73562

== ENCOUNTER → 2021-03-29 12:05 | Outpatient (CLI) | payer OTHER, SELFPAY ==
[2019-06-03 15:30] VITALS: BMI 36.6
--- NOTE | 2021-03-29 12:07 | DI.MRI.S_ITS ---
PROCEDURE: MR KNEE RT WO CON INDICATIONS: Other tear of medial meniscus, current injury, rig TECHNIQUE: Noncontrast sagittal PD fast spin echo and T2 fast spin echo with fat saturation, sagittal 3-D FLASH with fat saturation; coronal T1 spin echo and PD fast spin echo with fat saturation, and axial PD fast spin echo with fat saturation through the knee. COMPARISON: None. FINDINGS: Image quality: Excellent. Menisci: The lateral meniscus demonstrates no evidence of tear. Complex surfacing signal within the medial meniscal body, likely reflecting tear. Cruciate ligaments: The anterior and posterior cruciate ligaments appear intact. Medial structures: The medial collateral ligament appears intact. The visualized portions of the pes anserinus tendons appear normal. Lateral structures: The lateral collateral ligament complex appears intact. The popliteus tendon appears normal. The iliotibial band appears normal. Anterior structures: The quadriceps and patellar tendons appear intact. Patellar alignment is normal. No femoral trochlear dysplasia or ventral trochlear prominence. No edema in the infrapatellar fat pad. Bones and cartilage: Patchy T2 hyperintense/T1 hypointense signal is seen in the medial femoral condyle and tibial plateau, concerning for contusion. No distinct fracture line is appreciated. Mild signal heterogeneity and thinning of the medial compartment hyaline cartilage. The lateral and patellofemoral compartment hyaline cartilage appears maintained. Joint space: Small to moderate knee joint fluid. A 1.4 x 3 x 4.1 cm T2 hyperintense lesion is seen in the popliteal fossa, most consistent with a Altamirano cyst. IMPRESSION: 1. Complex signal in the medial meniscal body, concerning for tear. 2. Small to moderate joint effusion. 3. Patchy edematous signal in the medial femoral condyle and tibial plateau, likely reflecting contusion. 4. 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 Dictated by: Favian Borjas M.D. on 03/29/2021 at 17:10 Approved by: Favian Borjas M.D. on 03/29/2021 at 17:20
== END ==
PROVIDERS: Family Provider Family Medicine; PCP Nurse Practitioner Family; Referring Provider Orthopaedic Surgery; Visit Provider Orthopaedic Surgery
DX: S83.241A Other tear of medial meniscus, current injury, right knee, initial encounter (principal); M25.461 Effusion, right knee
CPT/HCPCS: 73721

== ENCOUNTER → 2021-11-12 10:12 | Outpatient (CLI) | payer OTHER, SELFPAY ==
[2019-06-03 15:30] VITALS: BMI 36.6
[2021-11-12 12:19] LABS: COVID19 -Nasal RAPID Negative (Negative)
== END ==
PROVIDERS: Family Provider Family Medicine; PCP Pediatrics; Visit Provider Surgery
DX: Z20.822 Contact with and (suspected) exposure to COVID-19 (principal); Z01.812 Encounter for preprocedural laboratory examination
CPT/HCPCS: 87635; C9803

== ENCOUNTER 2021-11-13 06:47 | Day surgery (SDC) | payer OTHER, SELFPAY ==
[2019-06-03 15:30] VITALS: BMI 36.6
[2021-11-13 07:12] VITALS: BP 134/77; PULSE 83; RESP 16; TEMP 36.4; O2SAT 97; BMI 40.7
[2021-11-13] MEDS: LACTATED RINGERS 1,000 ML 84 ML IV (07:12)
--- NOTE | 2021-11-13 07:48 | P.HP_ITS ---
History of Present Illness History of Present Illness Date Patient Seen: 11/13/21 Time Patient Seen: 07:48 Chief complaint: SDC Narrative: 61-year-old woman here for colonoscopy. She has had a recent change in bowel habits now with looser stools and abdominal bloating occurring several times per week. No blood per rectum. Last colonoscopy 10 years ago and normal. No personal or family history of intestinal malignancy. Patient History Medical History Asthma Chicken pox Chronic diarrhea Foot pain (~2016) Irritable bowel Left knee pain Obesity (BMI 35.0-39.9 without comorbidity) Surgical History Anesthesia Status post breast reduction (~1995) Family & Social History Family History Father No problems noted. Mother Cancer Hypertension Brother Hypertension Stroke Brother Cancer Grandfather Cancer Grandmother Diabetes mellitus Hypertension Grandfather Cancer Social History: household members none Tobacco & Substance use: Smoking Status Never smoker alcohol intake current alcohol intake frequency holiday/special occasion Substance Use Type does not use Meds Home Medications and Allergies Home Medications Medication Instructions Recorded Confirmed Type multivitamin (Multiple Vitamins 1 tab PO QDAY ##0 10/09/16 10/24/21 History tablet) calcium carbonate 500 mg calcium 500 mg PO DAILY 03/12/19 10/24/21 History (1,250 mg) capsule acetaminophen [Tylenol] PO 10/24/21 10/24/21 History naproxen sodium [Aleve] PO 10/24/21 10/24/21 History sodium,potassium,mag sulfates 17.5 See Rx Instructions PO .COMPLEX 10/29/21 Rx gram-3.13 gram-1.6 gram oral soln #354 mL (Suprep Bowel Prep Kit) Allergies Allergy/AdvReac Type Severity Reaction Status Date / Time No Known Drug Allergies Allergy Verified 11/13/21 07:08 Exam Vital Signs (past 8 hours): - 11/13/21 07:12 Temperature 97.6 F Pulse Rate 83 Respiratory Rate 16 Blood Pressure 134/77 Pulse Oximetry 97 Oxygen Delivery Method Room Air Oxygen Delivery Method Room Air Narrative Exam Narrative: General adult woman alert oriented no acute distress Chest nonlabored respirations Extremities warm well perfused Assessment & Plan Assessment & Plan narrative: 61-year-old woman with altered bowel habits here for colonoscopy. Technical de tails were discussed. Risks, benefits, alternatives explained. Risks including but not limited to myocardial infarction, aspiration, bleeding, pain, missed lesion, incomplete examination, need for further radiographic studies, colonic perforation, and need for major abdominal surgery were discussed. All questions were answered to their satisfaction, and they are in agreement with this plan. Time Spent With Patient Critical Care time: I spent a total of [] minutes of critical care time on this patient's care today; this time is exclusive of procedural time.
[2021-11-13] MEDS: MIDAZOLAM 2 MG/2 ML VIAL 5 MG IV (08:02)
[2021-11-13] MEDS: fentaNYL 250 MCG/5 ML INJ 150 MCG IV (08:02)
--- NOTE | 2021-11-13 08:11 | PM.OP.COLON ---
Operative Date/Time/Diagnoses Date of procedure: 11/13/21 Time of procedure: 08:11 Pre-op diagnosis: Altered bowel habit Post-op diagnosis: same Procedure & Clinicians Study performed: Colonoscopy Same procedure as scheduled: Yes Indications: Change in bowel habits Surgeon: Conor Albarado Procedure Notes Procedure in detail: Medications: Conscious sedation using 5 mg IV midazolam and 150 mcg IV of fentanyl The history and physical was performed/updated and the patient is ASA class is 2. The procedure was discussed in detail with the patient. Potential risks complications including infection, bleeding, missed diagnosis, perforation, need for surgery, and were explained. Their questions were answered and informed consent was obtained. Patient was brought to the procedure room and placed standard monitoring equipment. The patient's vital signs were monitored continuously throughout the entire procedure. Prior to starting time-out was performed. The patient was placed in the left lateral recumbent position. Procedural sedation was administered. Examination began with a thorough inspection of the perianal area there was no evidence of fissures, fistulae, external hemorrhoids or cutaneous malignancy. The colonoscopy scope was then placed into the anal canal and was advanced to the cecum, which was identified by the ileocecal valve, the appendiceal orifice and the confluence of the taenia. The scope was then slowly withdrawn examining colon thoroughly in all directions, irrigating it of any residual stool. FINDINGS 1. Normal healthy colon 2. No masses or polyps The patient tolerated the procedure well. They will be discharged once criteria are met. The prep was of good/excellent quality. The withdrawl time was 6 minutes. The sedation time was 16 minutes. Specimen(s): none sent Complications: none Impression: Normal colonoscopy Post-procedure Recommendations: Colonoscopy in 10 years and High fiber diet Disposition: same day surgery
[2021-11-13 08:17] VITALS: BP 115/66; PULSE 72; RESP 16; TEMP 36.5; O2SAT 96
[2021-11-13 08:22] VITALS: BP 115/62; PULSE 65; RESP 10; O2SAT 96
[2021-11-13 08:26] VITALS: BP 106/65; PULSE 66; RESP 16; TEMP 36.1; O2SAT 96
[2021-11-13 08:32] VITALS: BP 120/67; PULSE 82; RESP 16; TEMP 36.1; O2SAT 94
[2021-11-13 08:36] VITALS: BP 117/64; PULSE 69; RESP 17; TEMP 36.1; O2SAT 96
== END 2021-11-13 08:49 | disposition home or self-care (01) ==
PROVIDERS: Family Provider Family Medicine; PCP Pediatrics; Referring Provider Surgery; Visit Provider Surgery
PROC: 0DJD8ZZ Inspection of Lower Intestinal Tract, Via Natural or Artificial Opening Endoscopic (ICD-10-PCS; CPT 45378; principal; 2021-11-13 07:45)
DX: R19.4 Change in bowel habit; E66.09 Other obesity due to excess calories; Z68.36 Body mass index [BMI] 36.0-36.9, adult
CPT/HCPCS: 45378; 99152; J2250; J3010

== ENCOUNTER → 2022-08-20 07:56 | Outpatient (CLI) | payer OTHER, SELFPAY ==
[2019-06-03 15:30] VITALS: BMI 36.6
--- NOTE | 2022-08-20 07:58 | DI.MG.S_ITS ---
BILATERAL DIGITAL SCREENING MAMMOGRAM 3D/2D WITH CAD: 08/20/2022 CLINICAL: Baseline exam. Routine screening. Family history of breast cancer. No prior exams were available for comparison. There are scattered areas of fibroglandular density in both breasts (category b / 25%-50% glandular tissue). Current study was also evaluated with a Computer Aided Detection (CAD) system. There is a mass in the right breast with a biopsy clip in the right breast. No significant masses, calcifications, or other findings are seen in either breast. IMPRESSION: BENIGN There is no mammographic evidence of malignancy. A 1 year screening mammogram is recommended. Based on the Tyrer Cuzick model (a risk assessment model) the patient's lifetime risk is 9.0% and her 10 year risk is 3.8%. According to the ACR, ACS, and NCCN guidelines, an annual breast MRI exam along with mammogram is recommended if the patient's lifetime risk is 20% or greater. This exam was interpreted at Station ID: [id number]. NOTE: For mammograms, a report in lay terms will be sent to the patient. Approximately 15% of breast malignancies will not be visualized mammographically. In the management of a palpable breast mass, a negative mammogram must not discourage biopsy of a clinically suspicious lesion. Electronically Signed By: Jorge Mike M.D. [facility] [place]/:08/20/2022 12:36:37 letter sent: Normal Exam ACR BI-RADS Category 2: Benign Finding(s) [id number]
== END ==
PROVIDERS: Family Provider Family Medicine; PCP Pediatrics; Referring Provider Pediatrics; Visit Provider Pediatrics
DX: Z12.31 Encounter for screening mammogram for malignant neoplasm of breast (principal); Z80.3 Family history of malignant neoplasm of breast
CPT/HCPCS: 77063; 77067

== ENCOUNTER → 2022-12-30 16:35 | Outpatient (CLI) | payer OTHER, SELFPAY ==
[2019-06-03 15:30] VITALS: BMI 36.6
[2022-12-30 17:55] LABS: Add Manual Diff / Slide Review NO; Basophils Absolute Auto 100 /uL (0-100); Eosinophils Absolute Auto 100 /uL (0-450); Eosinophils Percent Auto 0.8 % (2-4); Hematocrit 36.9 % (36-46); Hemoglobin 12.6 g/dL (12.0-16.0); Lymphocytes Absolute Auto 1500 /uL (1100-4500); Lymphocytes Percent Auto 21.6 % (25-40); Mean Corpuscular Hemoglobin 28.8 PG (26-34); Mean Corpuscular Volume 84.6 fL (80-100); Monocytes Absolute Auto 600 /uL (0-900); Monocytes Percent Auto 8.2 % (3-14); Neutrophils Absolute Auto 4700 /uL (1500-7000); Neutrophils Percent Auto 68.4 % (50-75); Platelet Count 296 X10^3/uL (150-400); Red Blood Cell Count 4.36 X10^6/uL (4.0-5.2); Red Cell Distribution Width 14.2 % (11.6-14.8); White Blood Cell Count 6.9 X10^3/uL (4.5-11.0)
[2022-12-30 18:14] LABS: Erythrocyte Sedimentation Rate 14 MM/HR (0-20)
[2022-12-30 18:20] LABS: Alanine Aminotransferase 39 IU/L (<35); Albumin 4.2 g/dL (3.5-5.0); Albumin Globulin Ratio 1.4 (1.0-2.8); Alkaline Phosphatase 116 U/L (38-126); Aspartate Aminotransferase 38 IU/L (14-36); BUN Creatinine Ratio 23.2 (6-22); Bilirubin Total 0.4 mg/dL (0.2-1.3); Blood Urea Nitrogen 13 mg/dL (7-17); Carbon Dioxide 32 mmol/L (22-32); Chloride 102 mmol/L (98-107); Estimated Glomerular Filt Rate > 60 mL/min (>60); Globulin 3.1 g/dL (1.7-4.1); Glucose 88 mg/dL (80-110); HEMOLYSIS 15 (0-50); Potassium 4.1 mmol/L (3.4-5.1); Sodium 138 mmol/L (137-145); Total Protein 7.3 g/dL (6.3-8.2)
[2022-12-30 18:22] LABS: Appearance Urine UA CLEAR; Bilirubin Urine UA NEGATIVE (NEGATIVE); Color Urine UA YELLOW; Glucose Urine UA NEGATIVE (Negative); Ketones Urine UA NEGATIVE (NEGATIVE); Leukocyte Esterase Urine UA NEGATIVE (NEGATIVE); Nitrite Urine UA NEGATIVE (Negative); Occult Blood Urine UA NEGATIVE (Negative); Protein Urine UA NEGATIVE (Negative)
[2022-12-30 18:28] LABS: Bacteria Urine None Seen; Culture Indicated Urine Cult Not Indicated; RBC Urine 0-1/HPF (0-5/HPF); Squamous Epithelial Cell Urine 0-1 /HPF (0-5/HPF); WBC Urine 0-1/HPF (0-5/HPF)
[2022-12-30 18:53] LABS: TSH w/ Reflex to FT4 2.16 uIU/mL (0.47-4.68)
== END ==
PROVIDERS: Family Provider Family Medicine; PCP Pediatrics; Referring Provider Pediatrics; Visit Provider Pediatrics
DX: E66.9 Obesity, unspecified (principal); R51.9 Headache, unspecified; R03.0 Elevated blood-pressure reading, without diagnosis of hypertension
CPT/HCPCS: 36415; 80053; 81001; 84443; 85025; 85651

== ENCOUNTER → 2024-03-22 11:01 | Outpatient (CLI) | payer OTHER, SELFPAY ==
[2019-06-03 15:30] VITALS: BMI 36.6
--- NOTE | 2024-03-22 11:02 | DI.MG.S_ITS ---
BILATERAL DIGITAL SCREENING MAMMOGRAM 3D/2D WITH CAD: 03/22/2024 CLINICAL: Routine screening. Family history of breast cancer. Comparison is made to exam dated: 08/20/2022 mammogram - [facility]. There are scattered areas of fibroglandular density (category b / 25%-50% glandular tissue). Current study was also evaluated with a Computer Aided Detection (CAD) system. There is a benign mass in the right breast. There also is a biopsy clip in the right breast. No significant masses, calcifications, or other findings are seen in either breast. There has been no significant interval change. IMPRESSION: BENIGN There is no mammographic evidence of malignancy. A 1 year screening mammogram is recommended. Based on the Tyrer Cuzick model (a risk assessment model) the patient's lifetime risk is 8.7% and her 10 year risk is 3.8%. According to the ACR, ACS, and NCCN guidelines, an annual breast MRI exam along with mammogram is recommended if the patient's lifetime risk is 20% or greater. This exam was interpreted at Station ID: [id number]. NOTE: For mammograms, a report in lay terms will be sent to the patient. Approximately 15% of breast malignancies will not be visualized mammographically. In the management of a palpable breast mass, a negative mammogram must not discourage biopsy of a clinically suspicious lesion. Electronically Signed By: Lino burch/trent:03/22/2024 15:08:11 letter sent: Normal Exam ACR BI-RADS Category 2: Benign
== END ==
PROVIDERS: Family Provider Family Medicine; PCP Nurse Practitioner Family; Referring Provider Nurse Practitioner Family; Visit Provider Nurse Practitioner Family
DX: Z12.31 Encounter for screening mammogram for malignant neoplasm of breast (principal); Z80.3 Family history of malignant neoplasm of breast
CPT/HCPCS: 77063; 77067

== ENCOUNTER → 2025-02-10 08:39 | Outpatient (CLI) | payer OTHER, SELFPAY ==
[2019-06-03 15:30] VITALS: BMI 36.6
[2025-02-10 09:25] LABS: Hematocrit 40.1 % (36-46); Hemoglobin 13.7 g/dL (12.0-16.0); Mean Corpuscular HGB Conc 34.1 % (30-36); Mean Corpuscular Hemoglobin 28.8 PG (26-34); Mean Corpuscular Volume 84.5 fL (80-100); Platelet Count 341 X10^3/uL (150-400)
[2025-02-10 09:54] LABS: Alanine Aminotransferase 31 IU/L (<35); Albumin 4.4 g/dL (3.5-5.0); Albumin Globulin Ratio 1.6 (1.0-2.8); Alkaline Phosphatase 155 U/L (38-126); Blood Urea Nitrogen 14 mg/dL (7-17); Calcium 9.6 mg/dL (8.4-10.2); Carbon Dioxide 25 mmol/L (22-32); Chloride 103 mmol/L (98-107); Cholesterol 242 mg/dL (140-199); Estimated Glomerular Filt Rate > 60 mL/min (>60); Globulin 2.8 g/dL (1.7-4.1); Glucose 97 mg/dL (70-99); HDL Cholesterol 64 mg/dL (40-60); HEMOLYSIS < 15 (0-50); Potassium 4.4 mmol/L (3.4-5.1); Sodium 137 mmol/L (137-145); Total Protein 7.2 g/dL (6.3-8.2); Triglycerides 67 mg/dL (35-150)
[2025-02-10 10:25] LABS: Thyroid Stimulating Hormone 2.92 uIU/mL (0.47-4.68)
== END ==
PROVIDERS: PCP Nurse Practitioner Family; Referring Provider Nurse Practitioner Family; Visit Provider Nurse Practitioner Family
DX: Z00.00 Encounter for general adult medical examination without abnormal findings (principal); K52.9 Noninfective gastroenteritis and colitis, unspecified; K58.0 Irritable bowel syndrome with diarrhea; R03.0 Elevated blood-pressure reading, without diagnosis of hypertension; E66.9 Obesity, unspecified
CPT/HCPCS: 36415; 80053; 80061; 84443; 85027